=== PATIENT | female | born 1940 | race Caucasian/White ===

== ENCOUNTER 2018-09-03 09:58 | Day surgery (SDC) | payer MEDICARE, BC ==
[2018-09-02 11:27] LABS: BASOPHILS % (AUTO) 0.6 % (0-1); EOSINOPHILS # (AUTO) 0.2 X10'3 (0-0.9); HEMATOCRIT 40.1 % (35.0-45.0); HEMOGLOBIN 13.1 g/dl (12.0-16.0); LYMPHOCYTES # (AUTO) 2.2 X10'3 (1.1-4.8); LYMPHOCYTES % (AUTO) 36.2 % (21-51); MEAN CORPUSCULAR HEMOGLOBIN 29.5 PG (27.0-31.0); MEAN CORPUSCULAR HGB CONC 32.7 % (33.0-36.5); MEAN CORPUSCULAR VOLUME 90.3 FL (78-98); MEAN PLATELET VOLUME 9.2 FL (7.4-10.4); MONOCYTES # (AUTO) 0.4 X10'3 (0-0.9); MONOCYTES % (AUTO) 6.4 % (2-12); NEUTROPHILS # (AUTO) 3.3 X10'3 (1.8-7.7); NEUTROPHILS % (AUTO) 53.8 % (42-75); PLATELET COUNT 230 X10'3 (140-440); RED BLOOD COUNT 4.45 X10'6 (4.20-5.60); RED CELL DISTRIBUTION WIDTH 13.3 % (11.5-14.5); WHITE BLOOD COUNT 6.1 X10'3 (4.5-11.0)
[2018-09-02 11:35] LABS: ALBUMIN 3.6 G/DL (3.4-5.0); ANION GAP 8 (8-16); BLOOD UREA NITROGEN 20 MG/DL (7-18); BUN/CREATININE RATIO 21.3 (6.6-38.0); CALCIUM 9.1 MG/DL (8.5-10.1); CHLORIDE 105 MMOL/L (99-107); CREATININE 0.94 MG/DL (0.40-0.90); GLUCOSE 108 MG/DL (70-104); POTASSIUM 4.5 MMOL/L (3.5-5.1); SODIUM 142 MMOL/L (135-145); TOTAL CARBON DIOXIDE 28.7 MMOL/L (24-32); eGFR 58 ML/MIN
[2018-09-02 12:18] LABS: PARTIAL THROMBOPLASTIN TIME 26 SECONDS (22-32)
[~2018-09-03] VITALS: Ht 160 cm; Wt 75.3 kg
[2018-09-03] VITALS (13 sets, daily range): BP systolic 104–166; BP diastolic 42–77
[2018-09-03] MEDS ORDERED: normal saline 1000ml 1,000 ML IV SCH (10:20)
[2018-09-03] MEDS ORDERED: LORazepam 0.5 MG tablet PO PRN (10:20)
[2018-09-03] MEDS ORDERED: diphenhydrAMINE 25mg capsule PO PRN (10:20)
[2018-09-03] MEDS ORDERED: SOLI10TA2 PO (11:11)
[2018-09-03] MEDS ORDERED: UBID100C45 PO (11:11)
[2018-09-03] MEDS ORDERED: PANT40TA4 PO (11:11)
[2018-09-03] MEDS ORDERED: DULO-31 PO (11:11)
[2018-09-03] MEDS ORDERED: METO50TA7 PO (11:11)
[2018-09-03] MEDS ORDERED: CHOL10002 PO (11:11)
[2018-09-03] MEDS ORDERED: FENO135C PO (11:11)
[2018-09-03] MEDS ORDERED: LEVO100T PO (11:11)
[2018-09-03] MEDS ORDERED: [UNRECOGNIZED DRUG - OTHER] NASALCANN (11:12)
[2018-09-03] MEDS ORDERED: ASPI81TA52 PO (11:13)
[2018-09-03] MEDS ORDERED: heparin 1,000unit/ml 10ml vial 10 ML ONE (12:13)
[2018-09-03] MEDS ORDERED: fentaNYL/PF 50MCG/1 ML 2ML syringe ONE (12:13)
[2018-09-03] MEDS ORDERED: iohexol 350 MG/ML 50ML vial IV ONE (12:13)
[2018-09-03] MEDS ORDERED: nitroGLYCERIN-Tridil 50MG/D5W 250 ML IV ONE (12:13)
[2018-09-03] MEDS ORDERED: LIDOcaine 1% (10mg/ml)w/preservative injection 20ml MDV ONE (12:13)
[2018-09-03] MEDS ORDERED: midazolam 2 mg/2 ml injection ONE (12:13)
[2018-09-03] MEDS ORDERED: iohexol 350MG/ML 100ml bottle IV ONE (12:13)
[2018-09-03] MEDS ORDERED: HYDROcodone/acetaminophen 5mg/325mg tablet PO PRN (15:55)
[2018-09-03] MEDS ORDERED: HYDROcodone/acetaminophen 10/325mg tab PO PRN (15:55)
== END 2018-09-03 20:00 | disposition home or self-care (01) ==
LOC: SSTAY O 09:58
PROVIDERS: ATTEND Internal Medicine Cardiovascular Disease
DX: I25.110 Atherosclerotic heart disease of native coronary artery with unstable angina pectoris (principal); I48.0 Paroxysmal atrial fibrillation; E78.5 Hyperlipidemia, unspecified; G47.33 Obstructive sleep apnea (adult) (pediatric); I49.5 Sick sinus syndrome; I12.9 Hypertensive chronic kidney disease with stage 1 through stage 4 chronic kidney disease, or unspecified chronic kidney disease; N18.3 Chronic kidney disease, stage 3 (moderate); M79.7 Fibromyalgia; E03.9 Hypothyroidism, unspecified; K20.9 Esophagitis, unspecified; M19.90 Unspecified osteoarthritis, unspecified site; G89.29 Other chronic pain; Z90.722 Acquired absence of ovaries, bilateral; Z79.82 Long term (current) use of aspirin; Z88.2 Allergy status to sulfonamides; Z90.49 Acquired absence of other specified parts of digestive tract; Z90.710 Acquired absence of both cervix and uterus; Z98.41 Cataract extraction status, right eye; Z98.42 Cataract extraction status, left eye; Z88.5 Allergy status to narcotic agent; Z99.81 Dependence on supplemental oxygen; Z87.09 Personal history of other diseases of the respiratory system; Z98.890 Other specified postprocedural states; Z79.899 Other long term (current) drug therapy; Z82.3 Family history of stroke; Z82.49 Family history of ischemic heart disease and other diseases of the circulatory system; Z80.1 Family history of malignant neoplasm of trachea, bronchus and lung; Z83.6 Family history of other diseases of the respiratory system; Z83.3 Family history of diabetes mellitus; Z84.89 Family history of other specified conditions
CPT/HCPCS: 36415; 80048; 85025; 85610; 85730; 93005; 93458; 99152; 99153; A6257; C1760; J1644; J2001; J2250; J3010; J7030; Q0163; Q9967; A4620; C1769; J3490

== ENCOUNTER 2020-02-22 07:34 | Outpatient (CLI) | payer MEDICARE, OTHER ==
[2020-02-22] VITALS (23 sets, daily range): BP systolic 71–156; BP diastolic 37–79
[~2020-02-22 07:34] MED LIST: ASPI81TA52 PO; CHOL10002 PO; DULO-31 PO; FENO135C PO; LEVO100T PO; METO50TA7 PO; PANT40TA4 PO; SOLI10TA2 PO; UBID100C45 PO; [UNRECOGNIZED DRUG - OTHER] NASALCANN
== END 2020-02-22 23:59 | disposition home or self-care (01) ==
LOC: CARD DIAG 07:34
PROVIDERS: ATTEND Internal Medicine Cardiovascular Disease
DX: I95.9 Hypotension, unspecified (principal); R00.1 Bradycardia, unspecified
CPT/HCPCS: 93660

== ENCOUNTER 2020-03-14 18:58 | Inpatient (IN) | payer MEDICARE, OTHER ==
[~2020-03-14] VITALS: Ht 160 cm; Wt 68.2 kg
[2020-03-14] MEDS ORDERED: normal saline 1000ML IV soln IVB ONE (19:10)
[2020-03-14 19:18] LABS: BASOPHILS # (AUTO) 0.1 X10'3 (0-0.2); BASOPHILS % (AUTO) 0.8 % (0-1); EOSINOPHILS # (AUTO) 0.2 X10'3 (0-0.9); EOSINOPHILS % (AUTO) 1.9 % (0-6); HEMATOCRIT 40.3 % (35.0-45.0); HEMOGLOBIN 13.3 g/dl (12.0-16.0); LYMPHOCYTES # (AUTO) 3.8 X10'3 (1.1-4.8); LYMPHOCYTES % (AUTO) 41.1 % (21-51); MEAN CORPUSCULAR HEMOGLOBIN 30.3 PG (27.0-31.0); MEAN CORPUSCULAR HGB CONC 32.9 g/dL (33.0-36.5); MEAN CORPUSCULAR VOLUME 92.1 FL (78-98); MEAN PLATELET VOLUME 9.1 FL (7.4-10.4); MONOCYTES # (AUTO) 0.8 X10'3 (0-0.9); MONOCYTES % (AUTO) 8.6 % (2-12); NEUTROPHILS # (AUTO) 4.4 X10'3 (1.8-7.7); NEUTROPHILS % (AUTO) 47.6 % (42-75); PLATELET COUNT 259 X10'3 (140-440); RED BLOOD COUNT 4.37 X10'6 (4.20-5.60); RED CELL DISTRIBUTION WIDTH 13.6 % (11.5-14.5); WHITE BLOOD COUNT 9.2 X10'3 (4.5-11.0)
[2020-03-14 19:26] LABS: ALANINE AMINOTRANSFERASE 30 U/L (12-78); ALBUMIN 3.9 G/DL (3.4-5.0); ALKALINE PHOSPHATASE 47 IU/L (46-116); ANION GAP 11 (8-16); ASPARTATE AMINO TRANSFERASE 18 U/L (10-37); BILIRUBIN,TOTAL 0.4 MG/DL (0.1-1.0); BLOOD UREA NITROGEN 24 MG/DL (7-18); BUN/CREATININE RATIO 16.4 (6.6-38.0); CALCIUM 9.2 MG/DL (8.5-10.1); CHLORIDE 106 MMOL/L (99-107); CREATININE 1.46 MG/DL (0.40-0.90); GLUCOSE 101 MG/DL (70-104); POTASSIUM 4.1 MMOL/L (3.5-5.1); SODIUM 144 MMOL/L (135-145); TOTAL CARBON DIOXIDE 27.4 MMOL/L (24-32); eGFR 35 ML/MIN
[2020-03-14] MEDS ORDERED: LEVO125T PO (20:00)
[2020-03-14] MEDS ORDERED: LEVO112T5 PO (20:00)
[2020-03-14] MEDS ORDERED: AMLO-381 PO (20:00)
[2020-03-14] MEDS ORDERED: MIDO5TAB4 PO (20:00)
[2020-03-14] MEDS ORDERED: METO-411 PO (20:04)
[2020-03-14] MEDS ORDERED: acetaminophen 325mg tablet PO PRN (20:05)
[2020-03-14] MEDS ORDERED: magnesium Cl slow-release 64mg tablet PO PRN (20:05)
[2020-03-14] MEDS ORDERED: mag hydrox/Alum hydrox/simeth 30ml oral suspension PO PRN (20:05)
[2020-03-14] MEDS ORDERED: potassium Cl 20 mEq SR tablet PO PRN ×2 (20:05)
[2020-03-14] MEDS ORDERED: ondansetron/PF 4mg/2ml inj IV PRN (20:05)
[2020-03-14] MEDS ORDERED: magnesium hydroxide 30ml (MOM) UD suspension PO PRN (20:05)
[2020-03-14] MEDS ORDERED: bisacodyl 10mg suppository rectal RC PRN (20:05)
[2020-03-14] MEDS ORDERED: magnesium 4gm in 100ml NS 100 ML IV PRN (20:05)
[2020-03-14] MEDS ORDERED: potassium CL 10mEq/100ml bag 100 ML IV PRN ×2 (20:05)
[2020-03-14] MEDS ORDERED: magnesium 2GM in 50ml NS 50 ML IV PRN (20:05)
--- NOTE | 2020-03-14 20:26 | NUR ---
Patient in room ED 7. I have received report from JONNY DUNHAM and had the opportunity to ask questions and AWAITING PATIENT ARRIVAL TO [id number]
[2020-03-14 20:30] VITALS: BP 165/95
[2020-03-14 23:00] VITALS: BP 114/60
[2020-03-15] VITALS (13 sets, daily range): BP systolic 140–162; BP diastolic 53–76
[2020-03-15 01:30] LABS: BASOPHILS % (AUTO) 0.5 % (0-1); EOSINOPHILS # (AUTO) 0.2 X10'3 (0-0.9); HEMOGLOBIN 11.8 g/dl (12.0-16.0); LYMPHOCYTES % (AUTO) 37.2 % (21-51); MEAN CORPUSCULAR HEMOGLOBIN 30.2 PG (27.0-31.0); MEAN CORPUSCULAR HGB CONC 32.7 g/dL (33.0-36.5); MEAN CORPUSCULAR VOLUME 92.3 FL (78-98); MEAN PLATELET VOLUME 9.2 FL (7.4-10.4); MONOCYTES # (AUTO) 0.6 X10'3 (0-0.9); MONOCYTES % (AUTO) 7.9 % (2-12); NEUTROPHILS # (AUTO) 4.3 X10'3 (1.8-7.7); NEUTROPHILS % (AUTO) 52.4 % (42-75); PLATELET COUNT 199 X10'3 (140-440); RED CELL DISTRIBUTION WIDTH 13.5 % (11.5-14.5); WHITE BLOOD COUNT 8.2 X10'3 (4.5-11.0)
[2020-03-15 01:43] LABS: ALANINE AMINOTRANSFERASE 25 U/L (12-78); ALBUMIN 3.2 G/DL (3.4-5.0); ALBUMIN/GLOBULIN RATIO 0.9 (1.1-1.5); ALKALINE PHOSPHATASE 37 IU/L (46-116); ANION GAP 4 (8-16); ASPARTATE AMINO TRANSFERASE 15 U/L (10-37); BILIRUBIN,TOTAL 0.3 MG/DL (0.1-1.0); BLOOD UREA NITROGEN 20 MG/DL (7-18); BUN/CREATININE RATIO 15.6 (6.6-38.0); CALCIUM 8.5 MG/DL (8.5-10.1); CHLORIDE 110 MMOL/L (99-107); CREATININE 1.28 MG/DL (0.40-0.90); GLUCOSE 133 MG/DL (70-104); POTASSIUM 3.8 MMOL/L (3.5-5.1); SODIUM 144 MMOL/L (135-145); TOTAL CARBON DIOXIDE 29.8 MMOL/L (24-32); TOTAL PROTEIN 6.6 G/DL (6.4-8.2); eGFR 40 ML/MIN
[2020-03-15 01:46] LABS: MAGNESIUM 1.8 MG/DL (1.5-2.4)
--- NOTE | 2020-03-15 06:37 | NUR ---
Problems reprioritized. Patient report given, questions answered & plan of care reviewed with JONNY HSU.
--- NOTE | 2020-03-15 07:05 | NUR ---
Patient in room PCU 3024. I have received report from Abrahan FULLER and had the opportunity to ask questions and assume patient care.
[2020-03-15] MEDS: docusate sod 100mg capsule PO SCH ×2 (07:28→20:23)
[2020-03-15] MEDS: K and/or MAG REPLACEMENT MC SCH ×2 (07:31→20:28)
[2020-03-15 10:25] LABS: CLARITY,URINE CLOUDY (Clear); COLOR,URINE YELLOW (Yellow); GLUCOSE, URINE NEGATIVE (Neg); KETONES,URINE NEGATIVE (Neg); LEUKOCYTE ESTERASE ,URINE MODERATE (Neg); NITRITES, URINE POSITIVE (Neg); OCCULT BLOOD,URINE NEGATIVE (Neg); PROTEIN,URINE NEGATIVE (Neg)
[2020-03-15 10:30] LABS: UA COLLECTION TYPE NON-SPECIFIED
[2020-03-15 10:33] LABS: BACTERIA,URINE 4+ /HPF (Neg); RBC,URINE NONE SEEN /HPF (0-2); SQUAMOUS EPITHELIAL CELL,UR FEW /LPF (FEW)
[2020-03-15] MEDS: vitamin D (cholecalciferol) 1,000 unit tablet PO SCH (10:34)
[2020-03-15] MEDS: losartan 50mg tablet PO SCH (10:35)
[2020-03-15] MEDS: amLODIPine 5mg tablet PO SCH (10:35)
[2020-03-15] MEDS: pantoprazole 40mg Tablet.DR PO SCH (10:35)
--- NOTE | 2020-03-15 11:42 | NUR ---
Dr Blackwell at bedside with patient. New orders to add orthostatic vitals 1x daily and to go ahead and DC Home medication fenofibric acid. Patient did not want to bring medication from home and Dr. Blackwell was ok with that. Will continue to monitor.
--- NOTE | 2020-03-15 16:15 | NUR ---
labview programmer called to notify Nurse of placement of pacemaker. Patient was prep adn NS with ext hung. IV was unsuccessful, but patient was cleaned on the left side, strips printed and holter monitor DC and reports requested from Emily. Will continue to monitor. Addendum: 03/15/20 at 1708 by Aaliyah Barros RN [phone] is number to call for report. Addendum: 03/15/20 at 1732 by Aaliyah Barros RN Reports obtained through fax from Holter monitor company. Reports in paper binder with consent to pacemaker. Will continue to monitor.
[2020-03-15] MEDS ORDERED: fentaNYL/PF 50MCG/1 ML 2ML syringe ONE ×2 (17:22→18:55)
[2020-03-15] MEDS ORDERED: LIDOcaine 1% W/epiNEPHrine 1:100,000 20ml vial ONE (17:22)
[2020-03-15] MEDS ORDERED: ceFAZolin 1000mg inj ONE (17:22)
[2020-03-15] MEDS ORDERED: midazolam 2 mg/2 ml injection ONE ×2 (17:22→18:19)
--- NOTE | 2020-03-15 18:30 | NUR ---
Patient in room PCU 3024. I have received report from Aaliyah FULLER and had the opportunity to ask questions and assume patient care.
--- NOTE | 2020-03-15 18:41 | NUR ---
Problems reprioritized. Patient report given, questions answered & plan of care reviewed with Ed FULLER.
[2020-03-15] MEDS ORDERED: verapamil 2.5 mg/ml inj IV ONE (18:46)
[2020-03-15] MEDS: duloxetine 30mg CAPSULE.DR PO SCH (20:24)
[2020-03-15] MEDS: heparin, porcine 5000 units/ml vial SQ SCH (20:25)
[2020-03-15] MEDS: normal saline 1000ml 1,000 ML IV SCH (20:27)
[2020-03-15] MEDS ORDERED: HYDROcodone/acetaminophen 10/325mg tab PO PRN (20:55)
[2020-03-15] MEDS ORDERED: HYDROcodone/acetaminophen 5mg/325mg tablet PO PRN (20:55)
[2020-03-15] MEDS ORDERED: vancomycin/NS 1 GM ADD-VANTAGE 250 ML X 1 DOSE IV ONE (20:55)
[2020-03-15] MEDS ORDERED: OXYGEN NASALCANN SCH (21:00)
[2020-03-15] MEDS ORDERED: metoprolol tartrate 50mg tablet PO SCH (21:00)
[2020-03-16] VITALS: BP 152/63
[2020-03-16 00:30] VITALS: BP 149/64
[2020-03-16 01:30] VITALS: BP 141/60
[2020-03-16 02:00] VITALS: BP 140/60
[2020-03-16 06:00] VITALS: BP 145/56
[2020-03-16 06:15] LABS: ALANINE AMINOTRANSFERASE 23 U/L (12-78); ALBUMIN 3.4 G/DL (3.4-5.0); ALBUMIN/GLOBULIN RATIO 0.9 (1.1-1.5); ALKALINE PHOSPHATASE 38 IU/L (46-116); ANION GAP 9 (8-16); ASPARTATE AMINO TRANSFERASE 18 U/L (10-37); BILIRUBIN,TOTAL 0.5 MG/DL (0.1-1.0); BLOOD UREA NITROGEN 18 MG/DL (7-18); CALCIUM 8.9 MG/DL (8.5-10.1); CHLORIDE 107 MMOL/L (99-107); GLUCOSE 120 MG/DL (70-104); MAGNESIUM 1.7 MG/DL (1.5-2.4); POTASSIUM 3.7 MMOL/L (3.5-5.1); SODIUM 139 MMOL/L (135-145); TOTAL CARBON DIOXIDE 22.8 MMOL/L (24-32); eGFR 53 ML/MIN
[2020-03-16 06:30] LABS: BASOPHILS % (AUTO) 0.4 % (0-1); EOSINOPHILS # (AUTO) 0.1 X10'3 (0-0.9); EOSINOPHILS % (AUTO) 0.7 % (0-6); HEMATOCRIT 37.2 % (35.0-45.0); HEMOGLOBIN 12.3 g/dl (12.0-16.0); LYMPHOCYTES # (AUTO) 2.3 X10'3 (1.1-4.8); LYMPHOCYTES % (AUTO) 27.3 % (21-51); MEAN CORPUSCULAR HEMOGLOBIN 30.4 PG (27.0-31.0); MEAN CORPUSCULAR HGB CONC 33.1 g/dL (33.0-36.5); MEAN CORPUSCULAR VOLUME 91.7 FL (78-98); MEAN PLATELET VOLUME 9.8 FL (7.4-10.4); MONOCYTES # (AUTO) 0.6 X10'3 (0-0.9); NEUTROPHILS # (AUTO) 5.5 X10'3 (1.8-7.7); NEUTROPHILS % (AUTO) 64.6 % (42-75); PLATELET COUNT 185 X10'3 (140-440); RED BLOOD COUNT 4.06 X10'6 (4.20-5.60); RED CELL DISTRIBUTION WIDTH 13.7 % (11.5-14.5); WHITE BLOOD COUNT 8.6 X10'3 (4.5-11.0)
--- NOTE | 2020-03-16 06:30 | NUR ---
Problems reprioritized. Patient report given, questions answered & plan of care reviewed with Cassie FULLER.
[2020-03-16] MEDS ORDERED: AMLODIPINE PO SCH (08:00)
[2020-03-16] MEDS ORDERED: oxybutynin 5mg tablet PO SCH (08:00)
[2020-03-16] MEDS ORDERED: metoprolol tartrate 50mg tablet PO SCH (08:00)
[2020-03-16] MEDS: losartan 50mg tablet PO SCH (08:00)
[2020-03-16] MEDS ORDERED: FENOFIBRIC ACID 135 MG PO SCH (08:00)
[2020-03-16] MEDS ORDERED: VALSARTAN PO SCH (08:00)
[2020-03-16] MEDS ORDERED: aspirin 81mg tablet.DR PO SCH (08:00)
[2020-03-16] MEDS ORDERED: levoTHYROXINE 112mcg tablet PO SCH (08:00)
[2020-03-16] MEDS: K and/or MAG REPLACEMENT MC SCH (08:00)
[2020-03-16] MEDS: pantoprazole 40mg Tablet.DR PO SCH (08:03)
[2020-03-16] MEDS: vitamin D (cholecalciferol) 1,000 unit tablet PO SCH (08:03)
[2020-03-16] MEDS: amLODIPine 5mg tablet PO SCH (08:04)
[2020-03-16] MEDS: heparin, porcine 5000 units/ml vial SQ SCH (08:04)
[2020-03-16 08:06] VITALS: BP_SYST 145
[2020-03-16] MEDS: duloxetine 30mg CAPSULE.DR PO SCH (08:07)
[2020-03-16] MEDS: docusate sod 100mg capsule PO SCH (08:08)
--- NOTE | 2020-03-16 09:22 | NUR ---
Called pharmacy to inform that I have discussed with the patient the need to bring in own trilipix medication from home. electroneurodiagnostic technologist states she will inform pharmacist
--- NOTE | 2020-03-16 10:55 | NUR ---
Called in prescriptions to [facility] on [facility]
[2020-03-16] MEDS: normal saline 1000ml 1,000 ML IV SCH (12:15)
--- NOTE | 2020-03-16 12:30 | NUR ---
Per MD orders, patient stable for discharge home. Discharge packet reviewed and all questions answered to patient satisfaction. Prescriptions called in to pharmacy of preference. PIV discontinued; cannula intact. Telemonitoring discontinued. All belongings sent with patient. Transferred to private vehicle via wheelchair accompanied by aide.
== END 2020-03-16 13:36 | disposition home or self-care (01) | DRG 243 ==
LOC: ER 18:59 → ED HOLD 20:03 → PCU 3S 20:30 → OBSVTOIN 03-15 14:30
PROVIDERS: ADMIT Family Medicine; ATTEND Family Medicine
PROC: 0JH606Z Insertion of Pacemaker, Dual Chamber into Chest Subcutaneous Tissue and Fascia, Open Approach (ICD-10-PCS; principal; 2020-03-15)
PROC: 02H63JZ Insertion of Pacemaker Lead into Right Atrium, Percutaneous Approach (ICD-10-PCS; 2020-03-15)
PROC: 02HK3JZ Insertion of Pacemaker Lead into Right Ventricle, Percutaneous Approach (ICD-10-PCS; 2020-03-15)
DX: I49.5 Sick sinus syndrome (principal); N17.9 Acute kidney failure, unspecified; I47.1 Supraventricular tachycardia; E03.9 Hypothyroidism, unspecified; E78.5 Hyperlipidemia, unspecified; E86.0 Dehydration; I12.9 Hypertensive chronic kidney disease with stage 1 through stage 4 chronic kidney disease, or unspecified chronic kidney disease; I25.10 Atherosclerotic heart disease of native coronary artery without angina pectoris; I48.0 Paroxysmal atrial fibrillation; K21.9 Gastro-esophageal reflux disease without esophagitis; M79.7 Fibromyalgia; N18.9 Chronic kidney disease, unspecified; Z80.1 Family history of malignant neoplasm of trachea, bronchus and lung; Z82.3 Family history of stroke; Z90.49 Acquired absence of other specified parts of digestive tract; Z90.710 Acquired absence of both cervix and uterus; Z88.6 Allergy status to analgesic agent; Z88.2 Allergy status to sulfonamides; Z79.899 Other long term (current) drug therapy; Z79.01 Long term (current) use of anticoagulants; Z79.1 Long term (current) use of non-steroidal anti-inflammatories (NSAID); Z98.49 Cataract extraction status, unspecified eye; Z79.890 Hormone replacement therapy
CPT/HCPCS: 33208; 36415; 71045; 71046; 80053; 81001; 83735; 83880; 84443; 84484; 85025; 87077; 87081; 87088; 87186; 93005; 99152; 99153; 99285; A4565; A4620; A6449; C1785; C1894; C1898; G0378; J0690; J1644; J2250; J3010; J3370; J7030

== ENCOUNTER 2023-04-25 14:26 | Emergency (ER) | payer MEDICARE, OTHER ==
[~2023-04-25] VITALS: Ht 160 cm; Wt 72.8 kg
[~2023-04-25 14:26] MED LIST changes: +AMLO-381 PO; -FENO135C PO; -LEVO100T PO; +LEVO112T5 PO; +METO-411 PO; -METO50TA7 PO; -PANT40TA4 PO; +PANT40TA54 PO; -UBID100C45 PO
[2023-04-25 16:57] LABS: BASOPHILS % (AUTO) 0.4 % (0-1); EOSINOPHILS # (AUTO) 0.2 X10'3 (0-0.9); EOSINOPHILS % (AUTO) 1.6 % (0-6); HEMATOCRIT 41.9 % (35.0-45.0); HEMOGLOBIN 13.7 g/dl (12.0-16.0); LYMPHOCYTES # (AUTO) 3.7 X10'3 (1.1-4.8); LYMPHOCYTES % (AUTO) 35.7 % (21-51); MEAN CORPUSCULAR HGB CONC 32.7 g/dL (33.0-36.5); MEAN CORPUSCULAR VOLUME 91.7 FL (78-98); MEAN PLATELET VOLUME 8.8 FL (7.4-10.4); MONOCYTES # (AUTO) 0.8 X10'3 (0-0.9); MONOCYTES % (AUTO) 7.9 % (2-12); NEUTROPHILS # (AUTO) 5.7 X10'3 (1.8-7.7); NEUTROPHILS % (AUTO) 54.4 % (42-75); PLATELET COUNT 236 X10'3 (140-440); RED BLOOD COUNT 4.57 X10'6 (4.20-5.60); WHITE BLOOD COUNT 10.5 X10'3 (4.5-11.0)
[2023-04-25 17:07] LABS: ANION GAP 9 (8-16); BILIRUBIN,TOTAL 0.5 MG/DL (0.1-1.0); BLOOD UREA NITROGEN 27 MG/DL (7-18); BUN/CREATININE RATIO 20.3 (10.0-20.0); CALCIUM 9.5 MG/DL (8.5-10.1); CHLORIDE 105 MMOL/L (99-107); CREATININE 1.33 MG/DL (0.40-0.90); GLUCOSE 106 MG/DL (70-104); POTASSIUM 4.2 MMOL/L (3.5-5.1); SODIUM 141 MMOL/L (135-145); TOTAL CARBON DIOXIDE 26.7 MMOL/L (24-32); eCRCL 27 ML/MIN; eGFR 38 ML/MIN
[2023-04-25 17:08] LABS: ALANINE AMINOTRANSFERASE 28 U/L (12-78); ALBUMIN 3.7 G/DL (3.4-5.0); ALBUMIN/GLOBULIN RATIO 0.9 (1.1-1.5); ALKALINE PHOSPHATASE 42 IU/L (46-116); ASPARTATE AMINO TRANSFERASE 21 U/L (10-37); LIPASE 135 U/L (73-393); TOTAL PROTEIN 7.8 G/DL (6.4-8.2)
[2023-04-25 21:55] LABS: BILIRUBIN,URINE NEGATIVE (Neg); CLARITY,URINE CLOUDY (Clear); GLUCOSE, URINE NEGATIVE (Neg); KETONES,URINE NEGATIVE (Neg); LEUKOCYTE ESTERASE ,URINE MODERATE (Neg); NITRITES, URINE NEGATIVE (Neg); OCCULT BLOOD,URINE TRACE-INTACT (Neg); PH,URINE 5.5 (4.8-8.0); PROTEIN,URINE 30 mg/dl (Neg); UROBILINOGEN,URINE 0.2 E.U/dL (0.2-1.0)
[2023-04-25 21:57] LABS: COLOR,URINE DARK YELLOW (Yellow); UA COLLECTION TYPE CLN CATCH MIDSTREAM
[2023-04-25 22:01] LABS: RBC,URINE 0-2 /HPF (0-2); WBC,URINE 50-100 /HPF (0-4)
[2023-04-25 22:02] LABS: BACTERIA,URINE 3+ /HPF (Neg); HYALINE CASTS 0-3 /LPF (NEGATIVE); MUCUS STRANDS MODERATE /LPF (Neg); SQUAMOUS EPITHELIAL CELL,UR MODERATE /LPF (FEW)
[2023-04-25] MEDS ORDERED: METO50TA7 PO (22:06)
[2023-04-25] MEDS ORDERED: FENO135C4 PO (22:06)
[2023-04-25] MEDS ORDERED: DOXY-1 PO (22:10)
[2023-04-25 22:11] VITALS: TEMP 98.4
[2023-04-25] MEDS ORDERED: LIDOcaine Viscous 15ml cup MM ONE (22:30)
[2023-04-25] MEDS ORDERED: mag hydrox/Alum hydrox/simeth 30ml oral suspension PO ONE (22:30)
[2023-04-25] MEDS ORDERED: pantoprazole 40MG/NS 100ML BAG 100 ML IV ONE (22:30)
[2023-04-25 23:23] VITALS: BP 149/71; PULSE 76; RESP 18; O2SAT 95
--- NOTE | 2023-04-26 00:03 | NUR ---
Dr bradley states that she wants protonix 80 mg IV push. Informed [facility] pharmacist whom is assisting me with this order, as public relations writer having difficulty in [employer] with this said order.
[2023-04-26] MEDS ORDERED: pantoprazole 40MG/NS 100ML BAG 100 ML IV ONE (00:15)
[2023-04-26] MEDS ORDERED: OMEP40CA21 PO (00:56)
== END 2023-04-26 01:35 | disposition home or self-care (01) ==
LOC: ER 14:27
DX: K21.9 Gastro-esophageal reflux disease without esophagitis (principal); Z88.2 Allergy status to sulfonamides; Z88.5 Allergy status to narcotic agent; Z79.899 Other long term (current) drug therapy; Z79.2 Long term (current) use of antibiotics
CPT/HCPCS: 36415; 71045; 80053; 81001; 83690; 84484; 85025; 87077; 87088; 87186; 93005; 96365; 96366; 99285; C9113